=== PATIENT | female | born 1960 | race Caucasian/White ===

== ENCOUNTER 2020-04-22 05:30 | Day surgery (SDC) | payer MEDICARE, BC ==
[~2020-04-22] VITALS: Ht 170.2 cm; Wt 82.1 kg
--- NOTE | ~2020-04-22 | OR ---
[facility] [address] [place], [place] [address] Draft DATE OF OPERATION: 04/22/2020 SURGEON: Tulio Vasquez DPM PREOPERATIVE DIAGNOSES: 1. Hallux valgus, left foot with bunion deformity. 2. Hammertoe, left 2nd digit. 3. Contracture, left 2nd digit. POSTOPERATIVE DIAGNOSES: 1. Hallux valgus, left foot with bunion deformity. 2. Hammertoe, left 2nd digit. 3. Contracture, left 2nd digit. QA SOFTWARE TEST ENGINEER SURGEON: Birdie Mace DPM ANESTHESIA: IV general with local block left foot. DONOR RELATIONS ASSOCIATE: Pawan Flannery CRNA SPECIMEN TO PATHOLOGY: None. PROCEDURES PERFORMED: 1. Bunionectomy with distal 1st metatarsal osteotomy. 2. Hammertoe correction with PIPJ fusion, left 2nd digit. 3. Extensor tenotomy, left 2nd digit. DESCRIPTION OF PROCEDURE: The patient was brought to the operating room and placed on the table in the supine position. Anesthesia Department administered IV sedation after which a local block was given to the left foot using a total of 14 mL 1:1 mixture 2% lidocaine plain with 0.5% ropivacaine plain. The left leg and foot were then prepped and draped in the usual sterile manner and an Esmarch was used for hemostasis. Procedure #1: Bunionectomy with distal 1st metatarsal osteotomy, left foot. PATIENT NAME: MAKENZIE BOWMAN EDWIN OPERATIVE REPORT DATE OF : 64 REPORT #: [id number] PHYSICIAN: TULIO VASQUEZ DPM PCP: RIVERA GIRON NP REPORT IS CONFIDENTIAL AND NOT TO BE RELEASED WITHOUT AUTHORIZATION [facility] [address] [place], [place] [address] Draft Attention was initially directed to the dorsal/medial aspect left 1st MPJ where a linear longitudinal incision was made, centered over the joint and 8 to 10 cm in length. The incision was initially full-thickness through the dermis, then deepened through subcutaneous tissue using careful dissection and cautery as necessary for hemostasis. Once at the level of deep fascia and joint capsule, an incision was made deep to bone and soft tissues were reflected to expose the medial prominence at the 1st metatarsal head and also to open the joint. At this time, the bony prominence to the medial 1st metatarsal head was resected, removing 2 to 3 mm of bone with power instrumentation. Attention was then redirected to the 1st intermetatarsal space where a lateral release was performed. Once the lateral release was performed, this improved the deforming forces on the hallux and improved the hallux valgus position, but was not adequate correction alone. At this time, an osteotomy was made through the 1st metatarsal. This was a long dorsal arm chevron osteotomy from medial to lateral through the distal 1st metatarsal. Once the osteotomy was performed, the 1st metatarsal head was then laterally transposed about 6 to 7 mm, then fixated with K-wires temporarily, which were then used for cannulated screw placement. Two screws were placed from dorsal to plantar through the 1st metatarsal across the osteotomy site. These were 3.5 x 16 mm screws. The remaining shelf of bone medially was then resected using power instrumentation and the remaining bone smoothed with power instrumentation as well. At this time, the surgical site was irrigated with copious amounts of normal saline, then the hallux position was reassessed and a medial capsulotomy deemed necessary to tighten the medial capsule and help maintain correction. A medial capsulotomy performed removing about 3 mm of the capsule. The capsulotomy site then closed using 3-0 Vicryl. The remaining capsular incision then closed using 3-0 Vicryl as well. Subcutaneous tissue closed using 4-0 Vicryl and skin closed using skin ratna. Procedure #2: Hammertoe correction, left 2nd digit. Attention was directed to the dorsal aspect of the left 2nd digit PIPJ where a transverse ellipse was made removing the skin ellipse, exposed the tendon and joint capsule. A transverse incision was then made through the tendon and joint capsule to open the PIPJ. Soft tissues were then reflected proximally exposing the head of the proximal phalanx, which was then resected using power instrumentation. The base of the intermediate phalanx was adequately exposed and cartilaginous surface resected using power instrumentation as well. At this time, a PIPJ fusion implant was then placed into the proximal and intermediate phalanges and connected with a Dueñas taper type pin. Position was checked with good bony apposition noted and with good alignment to the toe. The surgical site then irrigated with copious amounts of normal saline. The joint capsule and extensor tendon were reapproximated using 4-0 Vicryl and the skin closed using 5-0 nylon monofilament suture. PATIENT NAME: MAKENZIE BOWMAN OPERATIVE REPORT DATE OF : 64 REPORT #: [id number] PHYSICIAN: TULIO VASQUEZ DPM PCP: RIVERA GIRON NP REPORT IS CONFIDENTIAL AND NOT TO BE RELEASED WITHOUT AUTHORIZATION [facility] [address] [place] [id number] Draft Procedure #3: Extensor tenotomy, left 2nd digit. The extensor tendon was noted to be tight during the procedure for the PIPJ fusion and prior to completion of the PIPJ fusion, it was deemed necessary to perform an extensor tenotomy to allow adequate correction and a percutaneous tenotomy performed about 3 cm proximal to the left 2nd MPJ, which provided significant release to the contracture at the MPJ. This site was closed using a single 5-0 nylon monofilament suture. Dressings were then applied consisting of Adaptic, Betadine-soaked gauze, dry gauze, flexor con, and Coban. The dressings were used to splint the position to the toes as well and to maintain correction. ESTIMATED BLOOD LOSS: Less than 5 mL. INTRAOPERATIVE COMPLICATIONS: None. YAW Lee/JEANNETTE /[id number] Copies: ~ PATIENT NAME: MAKENZIE BOWMAN EDWIN OPERATIVE REPORT DATE OF : 64 REPORT #: [id number] PHYSICIAN: TULIO VASQUEZ DPM PCP: RIVERA GIRON NP REPORT IS CONFIDENTIAL AND NOT TO BE RELEASED WITHOUT AUTHORIZATION
[~2020-04-22 05:30] MED LIST: APPLE CIDER VI300 MG PO; CALCIUM-MAGNES1 EAC4 PO; CLARITIN10 MG PO; DAILY MULTIPLE1 EACH PO; IBUPROFEN800 MG PO; NORCO 10-325 T1 EACH PO; NORCO 5-325 TA1 EACH PO; PERCOCET 7.5-31 EACH PO; VITAMIN B COMP1 EACH PO; VITAMIN D32000 UNI1 PO
[2020-04-22] MEDS ORDERED: CLARITIN10 MG PO (05:52)
[2020-04-22] MEDS ORDERED: KEFLEX500 MG PO (06:17)
--- NOTE | 2020-04-22 09:36 | NUR ---
04/22/20 0936 Clarissa,Jackelyn 0972 PT ARRIVED TO PACU ON 8L VIA MASK, PT REACTIVE TO TACTILE STIMULI AND IS REORIENTED TO PACU AND EASIYL FALLS BACK TO SLEEP. VSS. PT SITTING IN HIGH FOWLERS. 0928 PT WAKES AND DENIES PAIN AND NAUSEA. X-RAY CALLED. O2 REMOVED. RESP EVEN AND UNLABORED. PT SPIT AND SUCTION USED, SMALL AMOUNT OF PINK/CLEAR SPUTUM NOTED. PT FALLS EASILY BACK TO SLEEP. 0934 MD AT BEDSIDE TALKING TO PT, PT VERY DROWSY.
== END 2020-04-22 10:35 | disposition home or self-care (01) ==
LOC: DS 05:30 → OPS 05:30 → DS 06:45 → OPS 06:45
PROVIDERS: ATTEND Podiatrist Foot Surgery
PROC: 0LNW0ZZ Release Left Foot Tendon, Open Approach (ICD-10-PCS; 2020-04-22)
PROC: 0QSP04Z Reposition Left Metatarsal with Internal Fixation Device, Open Approach (ICD-10-PCS; principal; 2020-04-22 06:45)
PROC: 0SGQ04Z Fusion of Left Toe Phalangeal Joint with Internal Fixation Device, Open Approach (ICD-10-PCS; 2020-04-22 06:45)
DX: M21.612 Bunion of left foot (principal); M20.42 Other hammer toe(s) (acquired), left foot; M20.12 Hallux valgus (acquired), left foot; M20.5X2 Other deformities of toe(s) (acquired), left foot; Z88.2 Allergy status to sulfonamides
CPT/HCPCS: 01480; 73620; 73630; J0690; J0735; J1100; J1885; J2001; J2250; J2405; J2704; J2765; J2795; J3010; J7121